=== PATIENT | female | born 1965 | race African-American/Black ===

== ENCOUNTER 2023-12-04 13:05 | Emergency (ER) | payer OTHER ==
[~2023-12-04] VITALS: Ht 170.2 cm; Wt 83.9 kg
[2023-12-04 13:52] LABS: BASOPHILS % 0.2 % (0.0-1.0); EOSINOPHILS # (AUTO) 0.1 (0.0-0.4); EOSINOPHILS % 2.3 % (0.0-6.0); HEMATOCRIT 37.2 % (34.2-44.1); HEMOGLOBIN 12.4 g/dL (12.0-16.0); LYMPHOCYTES % 34.2 % (18.0-39.1); MEAN CORPUSCULAR HGB CONC 33.3 g/dL (31-35); MEAN CORPUSCULAR VOLUME 87.1 fL (81-99); MONOCYTES # (AUTO) 0.4 (0.2-0.8); MONOCYTES % 7.2 % (4.4-11.3); NEUTROPHILS # (AUTO) 3.2 (2.1-6.9); NEUTROPHILS % 55.7 % (38.7-80.0); PLATELET COUNT 202 x10e3/uL (140-360); RED BLOOD COUNT 4.27 x10e6/uL (3.6-5.1); RED CELL DISTRIBUTION WIDTH 13.8 % (11.7-14.4); WHITE BLOOD COUNT 5.71 x10e3/uL (4.8-10.8)
[2023-12-04 14:11] LABS: LIPASE 41 U/L (8-78)
[2023-12-04 14:13] LABS: ALBUMIN/GLOBULIN RATIO 1.1 (0.8-2.0); ANION GAP 14.2 mmol/L (8-16); BILIRUBIN,TOTAL 0.9 mg/dL (0.2-1.2); CALCIUM 9.3 mg/dL (8.4-10.2); CREATININE, SERUM 0.76 mg/dL (0.57-1.11); TOTAL PROTEIN 7.7 g/dL (6.5-8.1)
[2023-12-04 14:16] LABS: POTASSIUM 3.2 mmol/L (3.5-5.1)
[2023-12-04 14:23] LABS: TROPONIN I < 0.001 ng/mL (0-0.300)
[2023-12-04] MEDS ORDERED: PANTOPRAZOLE SO40 MG PO (14:58)
[2023-12-04 15:09] VITALS: BP 136/76; PULSE 75; RESP 16; TEMP 98.5; O2SAT 100
== END 2023-12-04 15:08 | disposition home or self-care (01) ==
LOC: EDBD 13:11 → ER 13:11
DX: R07.89 Other chest pain (principal); I10 Essential (primary) hypertension; E11.65 Type 2 diabetes mellitus with hyperglycemia; E78.5 Hyperlipidemia, unspecified
CPT/HCPCS: 36415; 71045; 80053; 83690; 84484; 85025; 93005; 99284